=== PATIENT | female | born 1980 | race Caucasian/White ===

== ENCOUNTER → 2020-12-14 17:59 | Outpatient (CLI) | payer OTHER, SELFPAY ==
[2020-12-15 08:55] LABS: Basophils # 0.1 K/mm3 (0-0.2); Basophils % 0.8 % (0.1-2.0); Eosinophils # 0.2 K/mm3 (0.0-0.4); Eosinophils % 2.2 % (0.1-12.0); Hematocrit 44.4 % (37.0-47.0); Hemoglobin 14.2 g/dL (12.2-16.2); Lymphocytes % 34.7 % (10-50); Mean Corpuscular Hemoglobin 30.3 pg (27.0-31.2); Mean Corpuscular Volume 94.8 fl (81-99); Mean Platelet Volume 10.9 fl (7.4-10.4); Monocytes # 0.6 K/mm3 (0.1-1.0); Neutrophils # 4.7 K/mm3 (1.8-7.8); Neutrophils % 55.3 % (37.0-80.0); Platelet Count 277 K/mm3 (142-424); Red Blood Count 4.68 M/mm3 (4.20-5.40); Red Cell Distribution Width 13.4 % (11.5-17.5); White Blood Count 8.5 K/mm3 (4.8-10.8)
[2020-12-15 09:00] LABS: Chloride 108 mmol/L (98-107); Potassium 4.6 mmoL/L (3.5-5.1); Sodium 141 mmol/L (136-145)
[2020-12-15 09:03] LABS: Alanine Aminotransferase 22 U/L (12-78); Albumin Level 4.2 g/dl (3.5-5.0); Albumin/Globulin Ratio 1.6 (1.1-1.8); Alkaline Phosphatase 107 U/L (38-126); Anion Gap 12.6 mEq/L (5-15); Aspartate Amino Transferase 21 U/L (14-36); Bilirubin,Total 0.2 mg/dl (0.2-1.3); Blood Urea Nitrogen 11 mg/dl (7-17); Carbon Dioxide 25 mmol/L (22.0-30.0); Cholesterol 170 mg/dl (140-200); Estimated Glomerular Filt Rate 112 ml/min (>60); GFR (African American) 135 ML/MIN (>60); Globulin 2.7 g/dL (1.3-3.2); Total Protein,Serum 6.9 g/dl (6.3-8.2); Triglycerides 140 mg/dl (30-150); VLDL Cholesterol 28 mg/dL (0-40)
[2020-12-15 09:04] LABS: Calcium 9.2 mg/dl (8.4-10.2); Chol/HDL Ratio 5.2 (1-3.5); Glucose 90 mg/dl (74-100); HDL Cholesterol 33 mg/dl (40-60)
[2020-12-15 09:15] LABS: Direct LDL Cholesterol 119.23 mg/dL (100-129)
[2020-12-15 09:20] LABS: Free T4 (Free Thyroxine) 1.35 ng/dl (0.78-2.19)
[2020-12-15 09:35] LABS: Thyroid Stimulating Hormone 2.12 uIU/mL (0.465-4.68)
[2020-12-15 10:09] LABS: 25-OH Vitamin D, Total < 12.8 ng/mL (30-100)
== END ==
PROVIDERS: Visit Provider Emergency Medicine
DX: E66.9 Obesity, unspecified (principal); Z68.38 Body mass index [BMI] 38.0-38.9, adult; E55.9 Vitamin D deficiency, unspecified
CPT/HCPCS: 80053; 80061; 82306; 84439; 84443; 85025

== ENCOUNTER → 2021-06-28 13:35 | Outpatient (CLI) | payer OTHER, SELFPAY ==
[2021-06-28 14:20] LABS: Amphetamine/Metha Screen,Urine Negative ng/ml (<1000)
[2021-06-28 14:21] LABS: Barbiturates Screen,Urine Negative ng/ml (<200)
[2021-06-28 14:22] LABS: Benzodiazepines Screen,Urine Negative ng/ml (<200); Cannabinoid Screen,Urine Negative ng/ml (<50)
[2021-06-28 14:23] LABS: Cocaine Screen,Urine Negative ng/ml (<300)
[2021-06-28 14:24] LABS: Methadone Screen,Urine Negative ng/ml (<300); Opiate Screen,Urine Negative ng/ml (<300)
[2021-06-28 14:25] LABS: Phencyclidine Screen,Urine Negative ng/ml (<25)
== END ==
PROVIDERS: Visit Provider Emergency Medicine
DX: Z79.899 Other long term (current) drug therapy (principal)
CPT/HCPCS: 80305

== ENCOUNTER → 2021-10-31 16:09 | Outpatient (CLI) | payer OTHER, SELFPAY ==
--- NOTE | 2021-10-31 16:15 | CT_ITS ---
PROCEDURE INFORMATION: Exam: CT Abdomen And Pelvis Without Contrast Exam date and time: 10/31/2021 4:15 PM Age: 41 years old Clinical indication: Abdominal pain; Flank; Left; Additional info: Severe left flank pain TECHNIQUE: Imaging protocol: Computed tomography of the abdomen and pelvis without contrast. Radiation optimization: All CT scans at this facility use at least one of these dose optimization techniques: automated exposure control; mA and/or kV adjustment per patient size (includes targeted exams where dose is matched to clinical indication); or iterative reconstruction. COMPARISON: No relevant prior studies available. FINDINGS: Lungs: Lung bases are clear. Liver: There is enlargement of the liver, measuring 17.3 cm. Well-defined 2 cm ovoid shaped lesion in the right hepatic lobe on image 14 series 3. The lesion is of fluid density and is most compatible with a benign hepatic cyst. The liver is otherwise unremarkable. Gallbladder and bile ducts: Prior cholecystectomy. There is no evidence of biliary ductal dilation. Pancreas: Normal. No ductal dilation. Spleen: The spleen demonstrates punctate calcifications, consistent with remote granulomatous organism exposure. The spleen is otherwise unremarkable. Adrenal glands: Normal. No mass. Kidneys and ureters: The right kidney is normal. The right ureter is normal. Mild left pelviectasis as compared with the right side. No significant left hydroureter. There is nonobstructive left nephrolithiasis. Largest left renal stone is in the lower pole caliceal system measuring 8 mm in greatest dimension. Cortical based 1 cm by 1.5 cm fat density lesion in the midpole of the left kidney (image 42 series 3 and image 49 series 601). Differential diagnosis would include a angiomyolipoma or a junctional parenchymal defect. There is very subtle fat stranding surrounding the left renal pelvis urothelium. There is subtle thickening to the aguirre of the proximal left ureter. No significant left perinephric fat stranding. Stomach and bowel: No bowel obstruction or significant bowel wall thickening. There is moderately excessive colonic stool content. Appendix: A normal appendix is identified. Intraperitoneal space: No free fluid, fluid collections, or pneumoperitoneum. Vasculature: Unremarkable. No abdominal aortic aneurysm. Lymph nodes: No retroperitoneal, pelvic, or mesenteric adenopathy. Urinary bladder: Urinary bladder appears unremarkable. Reproductive: Prior bilateral tubal ligation. The reproductive organs are otherwise unremarkable. Bones/joints: No acute skeletal abnormality or aggressive osseous lesion. Soft tissues: No acute body wall soft tissue findings. IMPRESSION: 1. Nonobstructive left nephrolithiasis. 2. Question of a left ascending UTI versus a recently passed left renal stone in the appropriate clinical setting. Consider correlation with urinalysis. 3. No definitive evidence for left ureteral obstructive stones at this time. 4. 1 cm x 1.5 cm fat density lesion in the left renal cortical midpole. Differential diagnosis would include a angiomyolipoma or a junctional parenchymal defect. Consider correlation with nonemergent ultrasound. 5. Incidental findings as above. COMMENTS: Consistent with the [employer]'s Incidental Findings Committee white paper (J [employer] [place] [employer]iol 2018): Any incidental renal lesion less than 1 cm or classified as too small to characterize, or any incidental cystic renal lesion characterized as simple-appearing, is likely benign. No follow-up imaging is recommended for these lesions per consensus recommendations based on imaging criteria.
[2021-10-31 16:25] LABS: MANUAL DIFFERENTIAL MANUAL DIFFERENTIAL (MANUAL DIFF)
[2021-10-31 16:55] LABS: Basophils # 0.1 K/mm3 (0-0.2); Basophils % 1.2 % (0.1-2.0); Eosinophils # 0.1 K/mm3 (0.0-0.4); Eosinophils % 1.2 % (0.1-12.0); Hematocrit 42.8 % (37.0-47.0); Hemoglobin 14.5 g/dL (12.2-16.2); Lymphocytes # 2.5 K/mm3 (0.7-4.5); Lymphocytes % 37.3 % (10-50); Mean Corpuscular HGB Conc 33.8 g/dL (31.8-35.4); Mean Corpuscular Hemoglobin 30.9 pg (27.0-31.2); Mean Corpuscular Volume 91.4 fl (81-99); Mean Platelet Volume 9.8 fl (7.4-10.4); Monocytes # 0.4 K/mm3 (0.1-1.0); Monocytes % 5.4 % (1.7-9.3); Neutrophils # 3.6 K/mm3 (1.8-7.8); Neutrophils % 54.9 % (37.0-80.0); Platelet Count 221 K/mm3 (142-424); Red Blood Count 4.68 M/mm3 (4.20-5.40); Red Cell Distribution Width 13.3 % (11.5-17.5); White Blood Count 6.6 K/mm3 (4.8-10.8)
[2021-10-31 17:29] LABS: Anion Gap 9.3 mEq/L (5-15); Blood Urea Nitrogen 11 mg/dl (7-17); Calcium 8.6 mg/dl (8.4-10.2); Carbon Dioxide 25 mmol/L (22.0-30.0); Chloride 107 mmol/L (98-107); Estimated Glomerular Filt Rate 111 ml/min (>60); GFR (African American) 135 ML/MIN (>60); Glucose 96 mg/dl (74-100); Potassium 4.3 mmoL/L (3.5-5.1); Sodium 137 mmol/L (136-145)
[2021-10-31 17:50] LABS: Urine Pregnancy, HCG Qual. Negative (Negative)
[2021-10-31 19:05] LABS: Eosinophils % 1 % (0-3); Lymphocytes % 38 % (10-50); Monocytes % 5 % (2-9); Neutrophils % 55 % (42-76); Platelet Estimate Normal; RBC Morphology Normal; Total Cells Counted 100
== END ==
PROVIDERS: PCP Emergency Medicine; Visit Provider Urology
DX: Z01.812 Encounter for preprocedural laboratory examination (principal); Z11.52 Encounter for screening for COVID-19; N20.0 Calculus of kidney
CPT/HCPCS: 36415; 74176; 80048; 81025; 85007; 85014; 85018; 85048; 85049; C9803; U0003; U0005

== ENCOUNTER → 2021-11-01 10:31 | Day surgery (SDC) | payer OTHER, SELFPAY ==
--- NOTE | 2021-11-01 10:47 | SUR.PREOP ---
MD spoke with pt about cancelling procedure. MD at beside, rx given to pt.
== END ==
PROVIDERS: PCP Emergency Medicine; Visit Provider Urology
DX: Z53.9 Procedure and treatment not carried out, unspecified reason (principal)

== ENCOUNTER → 2021-11-23 16:04 | Outpatient (CLI) | payer OTHER, SELFPAY ==
[2021-11-23 16:08] LABS: MANUAL DIFFERENTIAL MANUAL DIFFERENTIAL (MANUAL DIFF)
[2021-11-23 16:49] LABS: Urine Pregnancy, HCG Qual. Negative (Negative)
[2021-11-23 17:03] LABS: Basophils # 0.1 K/mm3 (0-0.2); Eosinophils # 0.2 K/mm3 (0.0-0.4); Eosinophils % 2.1 % (0.1-12.0); Hematocrit 40.9 % (37.0-47.0); Lymphocytes # 3.2 K/mm3 (0.7-4.5); Mean Corpuscular HGB Conc 34.2 g/dL (31.8-35.4); Mean Corpuscular Hemoglobin 31.3 pg (27.0-31.2); Mean Corpuscular Volume 91.4 fl (81-99); Mean Platelet Volume 10.2 fl (7.4-10.4); Monocytes # 0.4 K/mm3 (0.1-1.0); Monocytes % 5.4 % (1.7-9.3); Neutrophils # 3.9 K/mm3 (1.8-7.8); Neutrophils % 50.5 % (37.0-80.0); Platelet Count 243 K/mm3 (142-424); Red Blood Count 4.47 M/mm3 (4.20-5.40); Red Cell Distribution Width 13.2 % (11.5-17.5); White Blood Count 7.7 K/mm3 (4.8-10.8)
[2021-11-23 17:39] LABS: Chloride 110 mmol/L (98-107); Sodium 140 mmol/L (136-145)
[2021-11-23 17:40] LABS: Potassium 3.9 mmoL/L (3.5-5.1)
[2021-11-23 17:42] LABS: Blood Urea Nitrogen 12 mg/dl (7-17); Estimated Glomerular Filt Rate 93 ml/min (>60); GFR (African American) 113 ML/MIN (>60)
[2021-11-23 17:43] LABS: Anion Gap 10.9 mEq/L (5-15); Calcium 8.2 mg/dl (8.4-10.2); Carbon Dioxide 23 mmol/L (22.0-30.0); Glucose 80 mg/dl (74-100)
[2021-11-23 18:28] LABS: Eosinophils % 1 % (0-3); Hypochromasia 1+; Lymphocytes % 33 % (10-50); Monocytes % 6 % (2-9); Neutrophils % 60 % (42-76); Platelet Estimate Normal; Total Cells Counted 100
== END ==
PROVIDERS: PCP Emergency Medicine; Visit Provider Urology
DX: Z01.812 Encounter for preprocedural laboratory examination (principal); Z11.52 Encounter for screening for COVID-19; N20.0 Calculus of kidney
CPT/HCPCS: 36415; 80048; 81025; 85007; 85014; 85018; 85048; 85049; C9803; U0003; U0005

== ENCOUNTER 2021-11-25 07:34 | Day surgery (SDC) | payer OTHER, SELFPAY ==
[2021-11-25] VITALS (10 sets, daily range): BP systolic 108–145; BP diastolic 65–92; PULSE 77–98; RESP 16–18; TEMP 36.4–36.8; O2SAT 94–99; BMI 35.1
--- NOTE | 2021-11-25 07:39 | XR_ITS ---
FINAL REPORT CLINICAL HISTORY: KIDNEY STONES FINDINGS: A single view of the abdomen was obtained. There is a nonobstructive bowel gas pattern. There are no abnormally dilated loops of small bowel. There is a moderate amount of retained stool. There is a 7 mm renal stone in the lower pole of the left kidney. There several presumed phleboliths in the pelvis. A ureteral stone is not entirely excluded. There are postoperative changes in the right abdomen and in the pelvis. IMPRESSION: 7 mm renal stone in the lower pole of left kidney. Ureteral stone not entirely excluded. If indicated, renal stone protocol CT may be helpful. Reviewed, Interpreted and Dictated by Andriy Franklin III, MD Transcribed by Lorie Coyle Authenticated by Andriy Franklin III, MD on 11/25/2021 09:29:[address] [facility]
--- NOTE | 2021-11-25 09:03 | P.PN_ITS ---
[facility] Anesthesia Checklist - Patient Identification Patient Identification: Arm Band - Structural Data Planned Operative Procedure/s: ESWL Consent for Planned Operative Procedure(s) Verified: Yes - NPO Status Verified Time NPO: 00:00 - Chart Verification Results Verified: Type and Screen - Additional verifications Anesthesia Reactions: No Hx Blood Transfusions: No Blood Transfusion Reaction: No - Airway Assessment TMJ Mobility Assessed: Yes Dentition: Good Dentition - Anesthesia Plan Anesthesia Risk discussed: Yes Anesthesia Plan: Verified ASA Class: II Anesthesia Type: General [facility] History I have reviewed the patient's past medical history: Yes Medical History: Reports:: Anxiety, Depression, Kidney Stones Denies:: Cancer, Diabetes Mellitus Type 1, Diabetes Mellitus Type 2, Internal Pacemaker, MRSA, Seizures *Have you ever received a pneumonia vaccine?: No *Have you received a flu vaccine this season?: Yes Other Medical History: Denies: Blood Transfusion Reaction Anesthesia experience/problems:: /none Other Surgeries: Yes: Cholecystectomy, , Other. No: Pacemaker Amputation: No Fractures: No - *Social History Last grade of school completed: High school graduate Smoking Status: Current every day smoker # Packs/Day (cigarettes): 2 Alcohol Intake: current Alcohol Intake Frequency:: holidays/special occasions only Substance Use Type: denies use *Occupational Status:: employed Housing: house Household Members: family *Travel in the last 8 weeks: None - Psychiatric History Pschychiatric History:: Reports:: Anxiety, Depression Family Hx:: Diabetes, Heart Attack, Coronary Artery Disease, Kidney Disease, Hypertension
--- NOTE | 2021-11-25 09:40 | P.OP_ITS ---
Date of procedure: 11/25/21 Pre-op Diagnosis:: Left kidney stone, 7 mm Post-op Diagnosis:: Left lower pole stone, 7 mm Procedure performed:: Left ESWL Surgeon:: Regino Lynn MD PERSONAL DEVELOPMENT MENTOR:: Clay Menard Anesthesia: LMA Estimated blood loss (mL): 0 Clinical Note:: 41-year-old white female with recent left renal colic noted to have a 7 mm left kidney stone in the lower pole infundibulum as well as a 3 mm stone in the midpole on the left. Operative findings:: 7 mm stone is well seen in the area of the left lower pole. The 3 mm stone is faint and in the midpole area. The 7 mm stone was treated with good fragmentation. 3 mm stone was felt small enough to pass without intervention. Operative note:: Patient taken to the operating room after informed consent was obtained. Was placed on the operating room table in the supine position and general anesthesia administered. Preoperative antibiotics and sequential compression devices placed. He was then positioned so that F2 the lithotripter was focused onto the well calcified left lower pole stone. She was padded appropriately and 3000 flash ckwaves delivered to the stone with good fragmentation. The 3 mm stone was much fainter and in the area of the midpole. [place] that would be better to focus all of our energy on the 7 mm stone as 3 mm stone was small enough to pass. Patient tolerated procedure well no complications. Condition: stable Disposition: PACU Specimens:: None Complications:: None
--- NOTE | 2021-11-25 10:01 | SUR.PHASEI ---
0957- detailed report called to dipti britton in post op. 0959- pt left in stable condition with dipti britton in post op at this time.
--- NOTE | 2021-11-25 13:05 | P.PN_ITS ---
[facility] Anesthesia Record Part II Discharge Time: 09:58 Destination: Surgical Day Care (OP Surgery) PACU nurse assessment reviewed?: Yes Patient Condition:: Good Anesthesia Complications:: None Swallowing reflex intact?: Yes Cyanosis?: No Blood Pressure: 108/85 Pulse Rate: 85 Temperature: 98 F Mental Status: Alert & Oriented Pain level:: 0 Nausea and/or vomitting:: None Intake, IV Amount: 0
== END 2021-11-25 10:40 | disposition home or self-care (01) ==
LOC: OR 07:35
PROVIDERS: PCP Emergency Medicine; Visit Provider Urology
PROC: (CPT 50590; principal; 2021-11-25 08:45)
DX: N20.0 Calculus of kidney (principal); F32.A Depression, unspecified; F41.9 Anxiety disorder, unspecified; Z72.0 Tobacco use; Z79.899 Other long term (current) drug therapy
CPT/HCPCS: 50590; 74018; 96374

== ENCOUNTER → 2021-12-09 13:04 | Outpatient (CLI) | payer OTHER, SELFPAY ==
--- NOTE | 2021-12-09 13:08 | XR_ITS ---
FINAL REPORT CLINICAL HISTORY: kidney stone COMPARISON: November 25, [address] dated October 31, 2021 FINDINGS: ABDOMEN SINGLE VIEW There is a nonspecific, nonobstructive bowel gas pattern. A moderate amount of retained stool is noted. No bowel dilation is identified. No definite renal stone is identified. There are postoperative changes in the abdomen and pelvis. IMPRESSION: No definite renal stone identified. Reviewed, Interpreted and Dictated by Andriy Franklin III, MD Transcribed by Angela Malcolm Authenticated by Andriy Franklin III, MD on 12/09/2021 01:58:39 PM [facility]
== END ==
PROVIDERS: PCP Emergency Medicine; Visit Provider Pathology Anatomic Pathology & Clinical Pathology
DX: N20.0 Calculus of kidney (principal)
CPT/HCPCS: 74018

== ENCOUNTER → 2021-12-09 17:21 | Outpatient (CLI) | payer OTHER, SELFPAY ==
[2021-12-20 18:52] LABS: Size 4X4
[2021-12-20 18:53] LABS: Ca oxalate dihydrate 40
[2021-12-20 18:55] LABS: Cholesterol PN
== END ==
PROVIDERS: Visit Provider Urology
DX: N20.0 Calculus of kidney (principal)
CPT/HCPCS: 82370

== ENCOUNTER → 2021-12-14 16:00 | Outpatient (CLI) | payer OTHER, SELFPAY ==
[2021-12-14 14:34] LABS: Amphetamine/Metha Screen,Urine Negative ng/ml (<1000)
[2021-12-14 14:35] LABS: Barbiturates Screen,Urine Negative ng/ml (<200); Benzodiazepines Screen,Urine Negative ng/ml (<200)
[2021-12-14 14:36] LABS: Cannabinoid Screen,Urine Negative ng/ml (<50)
[2021-12-14 14:37] LABS: Cocaine Screen,Urine Negative ng/ml (<300); Methadone Screen,Urine Negative ng/ml (<300)
[2021-12-14 14:38] LABS: Opiate Screen,Urine Negative ng/ml (<300)
[2021-12-14 14:39] LABS: Phencyclidine Screen,Urine Negative ng/ml (<25)
== END ==
PROVIDERS: Visit Provider Emergency Medicine
DX: Z79.899 Other long term (current) drug therapy (principal)
CPT/HCPCS: 80305

== ENCOUNTER → 2022-02-08 16:30 | Outpatient (CLI) | payer OTHER, SELFPAY ==
[2022-02-08 13:59] LABS: Amphetamine/Metha Screen,Urine Negative ng/ml (<1000)
[2022-02-08 14:00] LABS: Barbiturates Screen,Urine Negative ng/ml (<200); Benzodiazepines Screen,Urine Negative ng/ml (<200)
[2022-02-08 14:01] LABS: Cannabinoid Screen,Urine Negative ng/ml (<50)
[2022-02-08 14:04] LABS: Cocaine Screen,Urine Negative ng/ml (<300)
[2022-02-08 14:05] LABS: Methadone Screen,Urine Negative ng/ml (<300)
[2022-02-08 14:06] LABS: Opiate Screen,Urine Negative ng/ml (<300)
[2022-02-08 14:08] LABS: Phencyclidine Screen,Urine Negative ng/ml (<25)
== END ==
PROVIDERS: Visit Provider Emergency Medicine
DX: Z79.899 Other long term (current) drug therapy (principal)
CPT/HCPCS: 80305

== ENCOUNTER → 2022-03-09 09:09 | Outpatient (CLI) | payer OTHER, SELFPAY ==
--- NOTE | 2022-03-09 09:14 | MR_ITS ---
FINAL REPORT CLINICAL HISTORY: low back pain into legs, no injury. FINDINGS: MRI LUMBAR SPINE W/O CONTRAST Multiplanar MR imaging of the lumbar spine was performed without contrast. On the sagittal T2-weighted images, disc degeneration is seen at several levels. The vertebral alignment is normal. There is no evidence of fracture. The conus has an unremarkable appearance. L1-2: No significant central canal stenosis or neural foraminal narrowing. L2-3: No significant central canal stenosis or neural foraminal narrowing. L3-4: An annular bulge is present. L4-5: There is a small left foraminal disc protrusion. There is mild left neural foraminal narrowing. L5-S1: No significant central canal stenosis or neural foraminal narrowing. IMPRESSION: Disc degeneration at several levels. Small disc protrusion with mild left neural foraminal narrowing at L4-5. Reviewed, Interpreted and Dictated by Andriy Franklin III, MD Transcribed by Lorie Coyle Authenticated and [facility]
== END ==
PROVIDERS: PCP Emergency Medicine; Visit Provider Emergency Medicine
DX: M54.16 Radiculopathy, lumbar region (principal)
CPT/HCPCS: 72148; 76376